=== PATIENT | male | born 1975 | race Caucasian/White ===

== ENCOUNTER → 2017-11-03 12:40 | Outpatient (CLI) | payer OTHER, SELFPAY | PROVIDERS: Family Provider Internal Medicine; PCP Internal Medicine; Visit Provider Internal Medicine | DX: R07.81 Pleurodynia (principal) | CPT/HCPCS: 71101 ==

== ENCOUNTER → 2017-11-07 09:59 | Outpatient (CLI) | payer OTHER, SELFPAY | PROVIDERS: Family Provider Internal Medicine; PCP Internal Medicine; Visit Provider Internal Medicine | DX: R10.11 Right upper quadrant pain (principal) | CPT/HCPCS: 76705 ==

== ENCOUNTER → 2018-05-10 15:49 | Outpatient (CLI) | payer OTHER, SELFPAY ==
--- NOTE | 2018-05-10 15:58 | CT_ITS ---
STUDY: CT ABDOMEN AND PELVIS WITH CONTRAST REASON FOR EXAM: Male, 42 years old. Right-sided abdominal mass x 5 years. RADIATION DOSAGE (If Supplied By Facility): CTDIvol = ( 19.31 ) mGy, DLP = ( 1078.39 ) mGycm TECHNIQUE: Transaxial images were obtained from the dome of the diaphragm to the symphysis pubis without oral contrast. Isovue 300 100 IV was administered. Sagittal and coronal images were reconstructed. Individualized dose optimization techniques were used for this CT. COMPARISON: CT abdomen and pelvis with oral and IV contrast November 15, 2013; right upper quadrant ultrasound November 07, 2017. FINDINGS: Stable mild elevation of the right diaphragm. The visualized lung bases are unremarkable. The visualized portions of the heart are within normal limits. Normal liver. The patent portal vein diameter which is 17.5 mm. Normal gallbladder and extrahepatic biliary system. The diameter of the common bile duct is 5 mm. Normal spleen. Normal pancreas. Normal bilateral adrenal glands. Normal right kidney. Normal left kidney. No hydronephrosis. There is a stable very small hiatal hernia or mildly ectatic distal phrenic ampulla of the esophagus. Normal small intestine. Normal colon. The appendix is visualized and appears normal. There are a few lymph nodes that are upper normal in size at the central mesentery. Normal abdominal aorta. Normal inferior vena cava. Normal retroperitoneum. Normal urinary bladder. There are stable coarse prostatic calcifications. There is a stable small umbilical hernia containing fat. There are stable multilevel degenerative changes of the visualized spine. Well-corticated focal invaginations of numerous lower thoracic vertebral endplates as well as the anterior superior L1 vertebral endplate are consistent with benign Schmorl's nodes. There is stable mild left lateral wedging of the T9 and T10 vertebrae as well as minor right lateral wedging of T12. CT/Abdomen/Pelvis W IV Cont ONLY IMPRESSION: 1. No demonstrated abdominal/pelvic mass or fluid collection. 2. Stable small fat-containing umbilical hernia. 3. Stable coarse calcifications of the prostate gland. 4. Stable degenerative changes and minor chronic vertebral deformities of the thoracolumbar spine, as noted. Electronically Signed: Bharathi Gamble MD at 15:30 EDT , Service support ,
== END ==
PROVIDERS: Family Provider Internal Medicine; PCP Internal Medicine; Referring Provider Internal Medicine; Visit Provider Internal Medicine
DX: R19.00 Intra-abdominal and pelvic swelling, mass and lump, unspecified site (principal)
CPT/HCPCS: 74177; Q9967

== ENCOUNTER 2020-10-15 10:07 | Emergency (ER) | payer OTHER, SELFPAY ==
[2020-10-15 10:08] VITALS: BP 169/94; PULSE 91; RESP 14; TEMP 36.6; O2SAT 100; BMI 29.9
--- NOTE | 2020-10-15 10:16 | RAD_ITS ---
History: chest pain EXAMINATION/TECHNIQUE: XR Chest 1 View: Portable COMPARISON: November 03, 2017 FINDINGS: LINES/DEVICES: None. LUNGS: No consolidation, edema or effusion. No pneumothorax. MEDIASTINUM AND CARDIOVASCULAR STRUCTURES: Cardiac silhouette not enlarged. Central airways and mediastinal contour are unremarkable. BONES AND SOFT TISSUES: Left clavicular fracture again seen. RAD/Chest 1 View (Portable) IMPRESSION: No radiographic evidence of acute cardiopulmonary disease. at 1105 Reported and signed by: Marcelo Woodward MD Electronically Signed: Marcelo Woodward MD at 11:04 EDT Tel , Service support ,
--- NOTE | 2020-10-15 10:16 | EKG12_ITS ---
Test Reason : CP Blood Pressure : / mmHG Vent. Rate : 087 BPM Atrial Rate : 087 BPM P-R Int : 160 ms QRS Dur : 092 ms QT Int : 352 ms P-R-T Axes : 031 -05 026 degrees QTc Int : 423 ms Normal sinus rhythm Nonspecific T wave abnormality Abnormal ECG Confirmed by HARESH BAILEY, SCOTT ([id number]), film or videotape editor PATY LANE ([id number]) on 10/17/2020 10:00:49 AM Referred By: SAMSON Confirmed By:SCOTT HUTSON MD
--- NOTE | 2020-10-15 10:17 | EDS_ITS ---
HPI History of Present Illness Chief Complaint: Chest Pain Informant: patient Onset/Context/Timing Onset: Days (3 days) Context: Gradual Onset Timing: Waxes and wanes Current Severity: Moderate Maximum Severity: Moderate Narrative Narrative: Patient presents secondary to 3-day history of chest pain. He describes it as a pressure or aching sensation in the upper chest that radiates to his back. He denies shortness of breath. It does not seem to be worsened by exertion. He does note some reflux but states he has that chronically. [facility] Medical History GERD (gastroesophageal reflux disease) Allergy/AdvReac Type Severity Reaction Status Date / Time No Known Allergies Allergy Verified 10/15/20 10:08 Social History Smoking Status: Never smoker ROS ROS ED Constitutional Constitutional ED: Denies chills or fever(s) Eyes Eyes: Denies change in vision ENT ENT ED: Denies sore throat Cardiovascular Cardiovascular: Reports chest pain Respiratory/Chest Respiratory/Chest: Denies cough or dyspnea Gastrointestinal Gastrointestinal: Denies abdominal pain, diarrhea, nausea or vomiting Genitourinary Genitourinary ED: Denies dysuria Musculoskeletal Musculoskeletal: Denies back pain Integumentary Denies rash Neurologic Neurologic: Denies headache(s) or weakness Psychiatric Psychiatric: Denies anxiety or depression Allergic/Immunologic Allergic/Immunologic ED: Denies urticaria EXAM Physical Exam Const Vital Signs: 10/15/20 10:08 10/15/20 10:25 Temperature 98 F Temperature Source Temporal Pulse Rate 91 Respiratory Rate 14 Respiratory Effort Normal Non-Labored Respiratory Pattern Normal Blood Pressure 169/94 H Blood Pressure Mean 119 Pulse Ox 100 97 Oxygen Delivery Method Room Air Room Air Positive well nourished and well developed General Appearance ED: well developed HEENT Reports normocephalic and head/scalp atraumatic Eyes PERRL and EOMs intact bilaterally Neck supple Chest Wall inspection of chest normal and palpation of chest normal Resp normal respiratory effort and clear to auscultation bilaterally Cardio regular rate and regular rhythm GI non-tender Palpation: soft Extremity normal to inspection Neuro oriented x3 and no sensory deficits noted Sensorium / Orientation: alert Motor Exam: strength 5/5 throughout Psych mental status grossly normal Skin no rashes or lesions noted MDM MDM MDM Narrative Medical decision making narrative: Patient was given aspirin on arrival. EKG, chest x-ray, labs obtained. Lab Data Attestation: I reviewed the patient's lab results. Labs: Laboratory Results - last 24 hr 10/15/20 10/15/20 10:25 10:25 WBC 7.0 RBC 5.09 Hgb 16.6 H Hct 47.7 MCV 93.7 MCH 32.6 H MCHC 34.8 RDW Std Deviation 40.1 RDW Coeff of Earl 11.6 Plt Count 252 MPV 9.6 Immature Gran % (Auto) 0.400 Neut % (Auto) 72.3 H Lymph % (Auto) 18.9 L [place] % (Auto) 6.7 Eos % (Auto) 1.0 Baso % (Auto) 0.7 Absolute Neuts (auto) 5.1 Absolute Lymphs (auto) 1.32 Nucleated RBC % 0 Sodium 137 Potassium 3.7 Chloride 102 Carbon Dioxide 30.0 Anion Gap 5 BUN 11 Creatinine 0.98 Estim Creat Clear Calc 102.28 Est GFR (MDRD) Af Amer 105 Est GFR (MDRD) Non-Af 87 BUN/Creatinine Ratio 11.2 Glucose 117 H Calcium 9.0 Troponin I High Sens 3.2 Radiography Chest X-Ray - ED: 1 View, Read by ED Physician, Normal, Heart, Lungs and Mediastinum Diagnostic Testing: Radiology Impression Chest X-Ray 10/15/20 10:16 IMPRESSION: No radiographic evidence of acute cardiopulmonary disease. at 1105 Reported and signed by: Marcelo Woodward MD Electronically Signed: Marcelo Woodward MD at 11:04 EDT Tel , Service support , EKG Initial EKG: Attestation: I personally reviewed and interpreted this EKG as follows: Interpretation: Sinus Rhythm (Sinus 87 with no acute ischemia. Nonspecific lateral T wave flattening.) Treatment and Re-Evaluation Comments:: Repeat evaluation patient is resting comfortably. Test results disc ussed with him. He has had 3 days of symptoms with a negative troponin. Chest x-ray is unremarkable per my interpretation. Radiologist interpretation is reviewed. Patient states he is scheduled to see Dr. Cai this afternoon. I will call her to update her on the findings of his work-up today. He will follow-up this afternoon. Discharge Plan Triage Chief Complaint: Chest Pain ED Provider: Eliane Vivas Dx/Rx/DC Orders Clinical Impression: Chest pain Instructions: ED Chest Pain, Uncertain Cause Primary Care Provider: Angela Cai Referrals: Angela Cai, DO [Primary Care Provider] - [facility] appointment Disposition Disposition: Home, Self Care
[2020-10-15] MEDS: Aspirin 81 MG TAB.CHEW 324 MG PO (10:20)
--- NOTE | 2020-10-15 10:24 | NURSING ---
NO OLD EKGS
[2020-10-15 10:25] VITALS: O2SAT 97
[2020-10-15 10:31] LABS: Absolute Lymphocyte Count 1.32 X10^3/uL (0.83-4.51); Absolute Neutrophil Count 5.1 X10^3/uL (2.0-7.7); Basophil# 0.05 X10^3/uL; Basophil% 0.7 % (0-1); Eosinophil# 0.07 X10^3/uL; Hematocrit 47.7 % (40-54); Hemoglobin 16.6 g/dL (13.0-16.5); Lymphocyte # 1.32 X10^3/ul (0.83-4.51); Lymphocyte % 18.9 % (19-41); Mean Corp Hgb Conc 34.8 g/dL (32-36); Mean Corpuscular Hgb 32.6 pg (27.0-32.0); Mean Corpuscular Volume 93.7 fL (80-94); Mean Platelet Vol. 9.6 fl (6.2-12.0); Monocyte# 0.47 X10^3/uL; Monocyte% 6.7 % (0-10); NRBC Flagged by Analyzer 0 % (0-5); Neutrophil # 5.05 X10^3/uL (2.7-7.7); Neutrophil % 72.3 % (47-70); Platelet Count 252 K/mm3 (150-450); RBC Distribution Width CV 11.6 % (11.6-14.6); RBC Distribution Width SD 40.1 fl (35.1-43.9); Red Blood Count 5.09 M/mm3 (4.6-6.2)
[2020-10-15 10:45] LABS: Anion Gap 5 (5-15); BUN 11 mg/dL (7-18); BUN/Creat Ratio 11.2 RATIO (10-20); Chloride 102 mmol/L (98-107); Creatinine, Serum 0.98 mg/dL (0.70-1.30); EST Glomerular Filtration Rate 87 mL/min (>60); Est Glom Filt Rate - Afr Amer 105 mL/min (>60); Estimated Creatinine Clearance 102.28 ml/min; Glucose 117 mg/dL (74-106); Potassium 3.7 mmol/L (3.5-5.1); Sodium Level 137 mmol/L (136-145); Troponin-I HS 3.2 pg/mL (3.0-78.5)
[2020-10-15 11:59] VITALS: BP 138/85; PULSE 68; RESP 17; O2SAT 97
== END 2020-10-15 12:01 | disposition home or self-care (01) ==
PROVIDERS: Emergency Provider Emergency Medicine; PCP Internal Medicine
DX: R07.9 Chest pain, unspecified (principal); K21.9 Gastro-esophageal reflux disease without esophagitis
CPT/HCPCS: 71045; 80048; 84484; 85025; 93005; 99285; A4216

== ENCOUNTER → 2020-11-13 06:15 | Outpatient (CLI) | payer OTHER, SELFPAY ==
[2020-10-15 10:08] VITALS: BMI 29.9
--- NOTE | 2020-11-13 09:06 | STRESSREP ---
Stress Test Report Date: 11-13-2020 Procedure: Exercise tolerance test/imaging study Indications: Chest pain Consent: Per the patient Procedure: The patient exercised on a Gaurav protocol for 11 minutes completing Stage III and 2 minutes of Stage IV achieving a peak heart rate of 187 bpm (108% predicted maximal heart rate) with a peak blood pressure 178/88 mmHg and a peak MET capacity of 13 METs. The baseline ECG demonstrated sinus rhythm. The peak exercise ECG demonstrated somatic/motion artifact with no obvious ECG changes. There was an isolated PVC during exercise. The functional capacity was considered good. There was no complaint of chest discomfort during exercise or recovery. The examination was discontinued secondary to dyspnea and leg fatigue. Impression: 1. Technically adequate (percent predicted maximal heart rate greater than 85%) exercise tolerance test 2. Peak exercise ECG with no obvious ECG changes 3. There was an isolated PVC during exercise 4. Nuclear images pending Myocardial perfusion imaging study: Technique: The patient was injected with 13.9 mCi of technetium 99m Cardiolite and subsequently rest SPECT Cardiolite nuclear imaging was obtained in the horizontal long, vertical long, and short axis views. The patient exercised on a Gaurav protocol for 11 minutes completing Stage III and 2 minutes of Stage IV achieving a peak heart rate of 187 bpm (108% predicted maximal heart rate) with a peak blood pressure 178/88 mmHg and a peak MET capacity of 13 METs. The patient was injected with 45.0 mCi of technetium 99m Cardiolite and subsequently stress SPECT Cardiolite nuclear imaging was obtained in the horizontal long, vertical long, and short axis views. A gated Cardiolite study at peak stress was obtained. Interpretation: Rest and stress SPECT Cardiolite nuclear imaging status post realignment, normalization, and attenuation correction, demonstrates the appearance of relative uniform tracer uptake and myocardial perfusion appearing within normal limits. There is end systolic thickening and brightening. The gated Cardiolite study demonstrates myocardial thickening and inward wall motion. The reported LVEF is 68%. Impression: 1. Rest and stress SPECT Cardiolite nuclear imaging demonstrate relative uniform tracer uptake and myocardial perfusion appearing within normal limits. 2. The gated Cardiolite study reports an LVEF of 68%. This note was generated with [employer] software. It may contain incorrect words, spelling, and punctuation that were not noted in checking the note before signing.
== END ==
PROVIDERS: PCP Internal Medicine; Referring Provider Internal Medicine; Visit Provider Internal Medicine
DX: R07.9 Chest pain, unspecified (principal)
CPT/HCPCS: 78452; 93017; A9500; A4216

== ENCOUNTER → 2023-03-24 | Outpatient (CLI) | payer OTHER, SELFPAY ==
--- NOTE | 2023-03-24 15:35 | CT_ITS ---
STUDY: CT ABDOMEN AND PELVIS WITH CONTRAST REASON FOR EXAM: Male, 47 years old. abdominal pain RADIATION DOSAGE (If Supplied By Facility): CTDIvol = ( 14.17 ) mGy, DLP = ( 1054.73 ) mGycm TECHNIQUE: Transaxial images were obtained from the dome of the diaphragm to the symphysis pubis with oral contrast. Oral and amp; IV Readi-CAT and amp; 100mL Isovue-300 was administered. Sagittal and coronal images were reconstructed. Individualized dose optimization techniques were used for this CT. COMPARISON: 05/10/2018. FINDINGS: The visualized lung bases are unremarkable. The visualized portions of the heart are within normal limits. Normal liver. Normal gallbladder and extrahepatic biliary system. Normal spleen. Normal pancreas. Normal bilateral adrenal glands. Normal right kidney. Normal left kidney. Normal visualized stomach. Normal small intestine. Normal colon. The appendix is visualized and appears normal. Normal abdominal aorta. Normal inferior vena cava. Normal retroperitoneum. Normal urinary bladder. There are prostatic calcifications. Normal abdominal wall. There are diffuse degenerative changes of the visualized lumbar spine. CT/Abdomen/Pelvis WITH Contrast IMPRESSION: No definite acute or significant abnormality seen. Electronically Signed: Tu Johns MD at 16:43 EST ,
== END | disposition home or self-care (01) ==
LOC: CT 15:35
PROVIDERS: PCP Internal Medicine; Referring Provider Internal Medicine; Visit Provider Internal Medicine
DX: R10.9 Unspecified abdominal pain (principal)
CPT/HCPCS: 74177; Q9967

== ENCOUNTER → 2024-10-28 | Outpatient (CLI) | payer OTHER, SELFPAY ==
[2024-10-28 10:34] LABS: Hematocrit 46.3 % (40-54); Hemoglobin 16.4 g/dL (13.0-16.5); Immature Granulocytes Count 0.020 X10^3/uL (0.0-0.0); Mean Corp Hgb Conc 35.4 g/dL (32-36); Mean Corpuscular Volume 93.5 fL (80-94); Mean Platelet Vol. 10.3 fl (6.2-12.0); NRBC Flagged by Analyzer 0 % (0-5); Platelet Count 266 K/mm3 (150-450); RBC Distribution Width CV 11.7 % (11.6-14.6); RBC Distribution Width SD 40.4 fl (35.1-43.9); Red Blood Count 4.95 M/mm3 (4.6-6.2); White Blood Count 7.1 K/mm3 (4.4-11.0)
[2024-10-28 10:55] LABS: AST(SGOT) 26 U/L (<=37); Alanine Aminotransfer ALT/SGPT 32 U/L (<=46); Albumin, Serum 4.6 g/dL (3.5-5.0); Alkaline Phosphatase 57 U/L (40-129); Anion Gap 10 (5-15); BUN 12 mg/dL (4-19); BUN/Creat Ratio 12.5 RATIO (10-20); Calcium,Total 9.4 mg/dL (7.6-11.0); Carbon Dioxide 26.9 mmol/L (21.0-32.0); Chloride 101 mmol/L (98-108); Globulin 3.0 g/dL (2.2-4.2); Glucose 109 mg/dL (70-99); Potassium 4.2 mmol/L (3.3-5.1)
[2024-10-28 11:35] LABS: Cholesterol 225 mg/dL (<=200); Low Density Lipoprotein Calc. 129 mg/dL; Triglycerides 213 mg/dL; Very Low Density Lipoprotein 43 mg/dL (5-40); cholesterol:hdl ratio screen 4.20
== END | disposition home or self-care (01) ==
LOC: MTLAB 07:49
PROVIDERS: PCP Internal Medicine; Referring Provider Internal Medicine; Visit Provider Internal Medicine
DX: R73.09 Other abnormal glucose (principal); I10 Essential (primary) hypertension; E78.5 Hyperlipidemia, unspecified
CPT/HCPCS: 36415; 80053; 80061; 83036; 85025